=== PATIENT | male | born 1950 | race Caucasian/White ===

== ENCOUNTER → 2017-06-02 | Outpatient (CLI) | payer MEDICARE, OTHER | LOC: COL.RAD 07:43 | DX: Z13.6 Encounter for screening for cardiovascular disorders (principal) ==

== ENCOUNTER → 2017-08-16 | Outpatient (CLI) | payer MEDICARE, OTHER | LOC: COL.RAD 13:16 | DX: N28.89 Other specified disorders of kidney and ureter (principal); K76.0 Fatty (change of) liver, not elsewhere classified; N20.0 Calculus of kidney; R39.89 Other symptoms and signs involving the genitourinary system ==

== ENCOUNTER → 2019-02-04 | Outpatient (CLI) | payer MEDICARE, OTHER | LOC: COL.RAD 14:50 | DX: M50.30 Other cervical disc degeneration, unspecified cervical region (principal); R29.898 Other symptoms and signs involving the musculoskeletal system ==

== ENCOUNTER 2019-03-20 09:22 | Emergency (ER) | payer MEDICARE, OTHER ==
[~2019-03-20] VITALS: Ht 180.3 cm; Wt 100.9 kg
[2019-03-20 09:26] VITALS: TEMP 98.1
[2019-03-20 10:09] LABS: BASO % 0.5 % (0.0-2.0); EOS # 0.1 (0.0-0.7); EOS % 1.2 % (0-4.0); GRAN # 4.5 (1.4-6.5); GRAN % 68.7 % (42.2-75.2); HEMATOCRIT 43.3 % (42.0-52.0); HEMOGLOBIN 14.8 g/dl (13.5-18.0); LYMPH # 1.2 (1.2-3.4); MEAN CELL VOLUME 92 fl (80.0-100.0); MEAN CORPUSCULAR HEMOGLOBIN 32 pg (27.0-31.0); MEAN CORPUSCULAR HGB CONC 34 g/dl (33.0-37.0); MEAN PLATELET VOLUME 9.4 fl (7.4-10.4); MONO # 0.7 (0.1-0.6); MONO % 10.2 % (1.7-9.3); PLATELET COUNT 196 K/mm3 (130-400); REDCELL DISTRIBUTION WIDTH-CV 13.1 % (11.5-14.5)
[2019-03-20 11:25] LABS: ALBUMIN 4.3 gm/dL (3.5-5.0); BILIRUBIN,TOTAL 0.7 mg/dL (0.0-1.0); C-REACTIVE PROTEIN 1.2 mg/dL (0.0-0.9); CALCIUM 9.1 mg/dL (8.4-10.2); CREATININE, serum 1.16 (0.66-1.25); POTASSIUM 4.4 mmol/L (3.4-5.0); TOTAL PROTEIN 7.3 gm/dL (6.4-8.2)
[2019-03-20 11:37] LABS: COLLECTION METHOD CLEAN CATCH
[2019-03-20 11:42] LABS: MUCOUS Present /lpf; PH 5 (5-8); SQUAMOUS EPITHELIAL None Seen /hpf; URINE APPEARANCE Clear; URINE BACTERIA None Seen /hpf; URINE BILIRUBIN Negative (NEGATIVE); URINE BLOOD 3+ (NEGATIVE); URINE COLOR Yellow; URINE GLUCOSE 3+ (NEGATIVE); URINE KETONE 2+ (NEGATIVE); URINE LEUKOCYTE ESTERASE Negative (NEGATIVE); URINE NITRATE Negative (NEGATIVE); URINE PROTEIN(semi-quant) 1+ (NEGATIVE); URINE UROBILINOGEN Negative (NEGATIVE)
[2019-03-20] MEDS ORDERED: ZOFRAN ODT4 MG PO (12:15)
[2019-03-20] MEDS ORDERED: PERCOCET 325 MG1 TA3 PO (12:15)
[2019-03-20 12:36] VITALS: BP 153/88; PULSE 74
[2019-03-21] MEDS ORDERED: FLONASE NASAL S16 GM NS (15:13)
[2019-03-21] MEDS ORDERED: JARDIANCE10 PO (15:14)
[2019-03-21] MEDS ORDERED: TRULICITY1.5 MG/0.5 SQ (15:15)
[2019-03-21] MEDS ORDERED: HYZAAR 50-12.1 UDTAB PO (15:16)
[2019-03-21] MEDS ORDERED: ROBAXIN 75750 MG/TAB PO (15:17)
[2019-03-21] MEDS ORDERED: CRESTOR 10MG10 MG PO (15:18)
[2019-03-21] MEDS ORDERED: KOMBIGLYZE XR 11 TE1 PO (15:19)
[2019-03-21] MEDS ORDERED: ZOLOFT 100MG100 MG PO (15:19)
[2019-03-21] MEDS ORDERED: ZYRTEC 10MG10 MG PO (15:20)
[2019-03-21] MEDS ORDERED: ASPIRIN 81M81 MG/TA2 PO (15:21)
== END 2019-03-20 12:35 | disposition home or self-care (01) ==
LOC: COL.ER 09:22
PROVIDERS: Family Medicine; Physician Assistant
DX: N20.0 Calculus of kidney (principal); E11.9 Type 2 diabetes mellitus without complications; I10 Essential (primary) hypertension; E78.5 Hyperlipidemia, unspecified; Z90.89 Acquired absence of other organs
CPT/HCPCS: J1170; J1885; J2405; J7030

== ENCOUNTER 2019-03-21 14:26 | Day surgery (SDC) | payer MEDICARE, OTHER ==
[~2019-03-21] VITALS: Ht 180.3 cm; Wt 104.2 kg
[2019-03-21] VITALS (8 sets, daily range): BP systolic 132–150; BP diastolic 64–96; PULSE 87–97; TEMP 97.5–97.8
[~2019-03-21 14:26] MED LIST: PERCOCET 325 MG1 TA3 PO; ZOFRAN ODT4 MG PO
[2019-03-21] MEDS ORDERED: FLONASE NASAL S16 GM NS (15:13)
[2019-03-21] MEDS ORDERED: JARDIANCE10 PO (15:14)
[2019-03-21] MEDS ORDERED: TRULICITY1.5 MG/0.5 SQ (15:15)
[2019-03-21] MEDS ORDERED: HYZAAR 50-12.1 UDTAB PO (15:16)
[2019-03-21] MEDS ORDERED: ROBAXIN 75750 MG/TAB PO (15:17)
[2019-03-21] MEDS ORDERED: CRESTOR 10MG10 MG PO (15:18)
[2019-03-21] MEDS ORDERED: ZOLOFT 100MG100 MG PO (15:19)
[2019-03-21] MEDS ORDERED: KOMBIGLYZE XR 11 TE1 PO (15:19)
[2019-03-21] MEDS ORDERED: ZYRTEC 10MG10 MG PO (15:20)
[2019-03-21] MEDS ORDERED: ASPIRIN 81M81 MG/TA2 PO (15:21)
--- NOTE | 2019-03-21 16:15 | NUR ---
Patient is rating pain at 8/10 and complains of nausea. Order for Dilaudid received and 1mg IV given. Patient placed on oxygen at 2L per nasal cannula and sats 98%. Will continue to monitor.
--- NOTE | 2019-03-21 16:25 | NUR ---
Dr. Forman here and talks with the patient.
--- NOTE | 2019-03-21 16:30 | NUR ---
Patient states that his pain is tolerable. Sats 96% on 2L per nasal cannula.
--- NOTE | 2019-03-21 16:55 | NUR ---
Spouse in room and patient has been resting.
--- NOTE | 2019-03-21 17:00 | NUR ---
Report given to Marissa ELAM and patient moved to PACU isolation bay.
--- NOTE | 2019-03-21 22:04 | NUR ---
[facility]. Denied having pain and discomfort. Alert and oriented, and able to make needs known. Patient has occasional cough, with small amount of white frothy sputum. Denies having SOB and dyspnea. Reported that patient did have neb tx around 1930. Had been on oxygen at 2 L/min via [place], but was placed on room air when arriving to floor. 95-98% RA. Started post-op checks per orders. Patient was already urinating, and had drank prior to arrival. This nurse had patient eat a jello, and patient tolerated well. Denies having nausea and upset stomach. Urine bright red in color. Patient having frequency and urgency. Educated that that is normal at first, and should decrease over the next few days. Noted patient to have small welt-like areas to back of neck. Areas were round and hard. Denied itching, pain, and discomfort to areas. No redness or warmth noted. When checked on about 10 minutes later, areas were extending down back and to chest. Called and spoke with Dr. Forman at 2100. New order received to give 25 mg Benadryl IV now. Stated he can stay overnight if he did not feel comfortable going home, or if areas were getting worse. Gave medication as ordered. Patient stated at about 2150 that he was ready to go. No increase in welt-like sizes were noted. Still without redness and warmth. Discharge paperwork given and gone over with patient and . Discharged from facility at approximately 2200.
== END 2019-03-21 22:00 | disposition home or self-care (01) ==
LOC: SDCO 14:26 → MEDICAL 20:12 → SDCO 22:00
DX: N20.1 Calculus of ureter (principal); Z87.442 Personal history of urinary calculi; I10 Essential (primary) hypertension; E11.9 Type 2 diabetes mellitus without complications; Z79.84 Long term (current) use of oral hypoglycemic drugs; Z79.82 Long term (current) use of aspirin; Z79.899 Other long term (current) drug therapy; Z87.891 Personal history of nicotine dependence; F32.9 Major depressive disorder, single episode, unspecified; E78.00 Pure hypercholesterolemia, unspecified
CPT/HCPCS: OP; C1769; C2617; J0690; J1170; J1200; J2704; J3010; Q9967

== ENCOUNTER 2019-04-03 09:08 | Day surgery (SDC) | payer MEDICARE, OTHER ==
[~2019-04-03] VITALS: Ht 180.3 cm; Wt 101.8 kg
[~2019-04-03 09:08] MED LIST changes: +ASPIRIN 81M81 MG/TA2 PO; +CRESTOR 10MG10 MG PO; +FLONASE NASAL S16 GM NS; +HYZAAR 50-12.1 UDTAB PO; +JARDIANCE10 PO; +KOMBIGLYZE XR 11 TE1 PO; +ROBAXIN 75750 MG/TAB PO; +TRULICITY1.5 MG/0.5 SQ; +ZOLOFT 100MG100 MG PO; +ZYRTEC 10MG10 MG PO
[2019-04-03] MEDS ORDERED: VALIUM 5MG T5 MG/TAB PO (10:10)
[2019-04-03] MEDS ORDERED: PROZAC 20MG20 MG PO (10:11)
[2019-04-03] MEDS ORDERED: UROCIT-K 1010 MEQ PO (10:12)
[2019-04-03 10:21] VITALS: BP 152/87; PULSE 78; TEMP 97.2
[2019-04-03 12:28] VITALS: TEMP 97.6
[2019-04-03 12:35] VITALS: BP 151/71; PULSE 86
--- NOTE | 2019-04-03 12:35 | NUR ---
Patient returns to room 4 per cart from PACU and is awake and alert. Temp 97.3 and sats 95%. Denies pain or nausea. Taking water and IV fluids continue to infuse. Spouse in room. Allowed to rest.
[2019-04-03 12:50] VITALS: BP 158/74; PULSE 95
--- NOTE | 2019-04-03 12:50 | NUR ---
Room air sats 95%. Continues to sip on water. Offers no complaints of pain or nausea.
[2019-04-03 13:05] VITALS: BP 167/87; PULSE 94
--- NOTE | 2019-04-03 13:05 | NUR ---
Assisted up to the bathroom and gait is steady. Voids pink tinged urine with few small clots noted. Returns to room sitting on edge of cart drinking Coke and eating jello.
[2019-04-03 13:20] VITALS: BP 139/76; PULSE 92
--- NOTE | 2019-04-03 13:20 | NUR ---
Again up to the bathroom and voids. Urine pink tinged. States that he is having slight left sided discomfort and warm blanket held to side.
--- NOTE | 2019-04-03 13:30 | NUR ---
IV discontinued and site is free of redness. Patient dresses self. Drinking water and Coke.
[2019-04-03] MEDS ORDERED: NORCO 325 MG-51 TAB PO (13:44)
[2019-04-03] MEDS ORDERED: PYRIDIUM 100MG100 MG PO (13:44)
[2019-04-03] MEDS ORDERED: SENOKOT S 50 MG1 TAB PO (13:45)
--- NOTE | 2019-04-03 13:55 | NUR ---
Awaiting Dr. Forman to put in orders for discharge. Provided scripts for Pyridium, Senokot, and Pennington.
--- NOTE | 2019-04-03 14:20 | NUR ---
Instructions signed and patient voices understanding of home cares and follow up as scheduled. Patient dismissed to home per private vehicle driven by spouse with instructions in hand. Taken to the front door per wheelchair and assisted into car by RN.
== END 2019-04-03 14:20 | disposition home or self-care (01) ==
LOC: SDCO 09:08
DX: N20.1 Calculus of ureter (principal); Z87.442 Personal history of urinary calculi; E78.00 Pure hypercholesterolemia, unspecified; E11.9 Type 2 diabetes mellitus without complications; I10 Essential (primary) hypertension; Z79.899 Other long term (current) drug therapy; Z79.82 Long term (current) use of aspirin; Z79.84 Long term (current) use of oral hypoglycemic drugs; F32.9 Major depressive disorder, single episode, unspecified; Z85.828 Personal history of other malignant neoplasm of skin; Z87.891 Personal history of nicotine dependence
CPT/HCPCS: C1769; C1894; C2617; J0690; J1100; J1885; J2405; J2704; J3010; J7030